=== PATIENT | female | born 1945 | race Caucasian/White ===

== ENCOUNTER 2018-01-04 08:14 | Day surgery (SDC) | payer MEDICARE, MEDICAID, SELFPAY ==
--- NOTE | 2018-01-03 11:20 | POEE_ITS ---
History of Present Illness Chief Complaint: Progressive decreased vision, right eye Narrative: The patient is a 71-year-old lady who presented with complaints of progressive decreased vision at both distance and near in her right eye. She notes significantly cloudy vision with a gradual onset. She does a lot of near work and has significant difficulty with that. On examination she was noted to have moderate nuclear and cortical cataract of the right eye with central cortical spoking with obscuration of the central visual axis. The option of cataract surgery was offered to the patient and she wished to proceed. NOTE: The Chief Complaint, HPI, Past Medical History, Past Surgical History, Family History, Social History, Medications, and complete Ophthalmic Exam with detailed Assessment and Plan have already been documented in the patient's outpatient ophthalmic record and/or in the Primary Care Provider's pre-op history and physical, and are not covered again in detail here. PFSH Family History Mother Cerebrovascular accident Father Heart disease Sister Personal history of malignant neoplasm Grandfather Personal history of malignant neoplasm Grandfather No problems noted. Grandmother Personal history of malignant neoplasm Grandmother No problems noted. Meds Allergies Allergy/AdvReac Type Severity Reaction Status Date / Time No Known Allergies Allergy Unverified 12/07/17 14:41 Exam OCULAR EXAM:: Visual acuity at distance: 20/20 right eye, 20/30 left eye. Pupils: Pupils equal, round, and reactive without afferent pupillary defect IOP: 17 OD, 14 OS Extraocular Motility: Normal Pertinent Slit Lamp Findings: Significant for pupils dilating to 5.5 mm OU. 1+ nuclear with 2+ cortical cataract is present OU. In the right eye there is central cortical spoking crossing the visual axis. Dilated Funduscopic Examination: Disc cupping is 0.3 OU with good color. The optic nerves have good perfusion and normal color. The retinal vasculature is normal without significant tortuosity or abnormality. The maculas are normal in appearance with normal contour and foveal reflex appropriate for age. The peripheral retina and vitreous are normal. BRIGHTNESS ACUITY TESTING (BAT):: Off right eye 20/20 Low: 20/25 Medium: 20/40 High: 20/50 Assessment and Plan (1) Nuclear sclerotic cataract of right eye: Current visit: No Status: Acute Assessment: Visually significant cataract, right eye with significant glare disability Plan: Cataract extraction with intraocular lens implantation, right eye (2) Cortical cataract of right eye: Current visit: No Status: Acute Assessment: Visually significant cataract, right eye, with significant glare disability Plan: Cataract extraction with intraocular lens implantation, right eye Note: NOTE:: The details of the planned surgery, including the risks, indications, limitations,expectations,outcome and possible complications were explained to the patient. The patient understands the complications including, but not limited to: infection, hemorrhage, posterior dislocation of the lens or nuclear fragments which may require the intervention of a vitreoretinal surgeon, possible loss of the eye, or from anesthetic complications. The patient has been made aware of the option of not having surgery, that vision following surgery may not be equal to that prior to surgery, and that the planned surgery may not achieve the intended results. Following this discussion, which the patient appeared to understand, the patient wishes to proceed with cataract surgery with lens implantation of the affected eye to improve and maximize vision.
[2018-01-04 08:32] VITALS: BP 141/93; PULSE 97; RESP 16; TEMP 36.6; O2SAT 96
[2018-01-04] MEDS: Lidocaine 2% Jelly 6 ML SYR (10:05)
[2018-01-04] MEDS: Balanced Salt Soln.-PLUS 500 ML BAG (10:10)
[2018-01-04] MEDS: Lidocaine 1% Pres-Free 5 ML VIAL (10:10)
[2018-01-04] MEDS: Povidone-Iodine Ophth 30 ML BTL (10:17)
--- NOTE | 2018-01-04 10:37 | W.PM.DSUDISC ---
Discharge Plan Discharge Details Reason For Visit: CATARACT OD Attending Provider: Johnie Antonio Primary Care Provider: Audrey Rivera Discharge Instructions Stand Alone Forms: Post-op Topical Jarred, Randal Corcoran (DSU) DS: Diagnosis Discharge Diagnosis (1) Nuclear sclerotic cataract of right eye: Status: Resolved (2) Cortical cataract of right eye: Status: Resolved
--- NOTE | 2018-01-04 10:40 | ROE_ITS ---
Date of service: 01/04/18 Time of Service: 10:38 Operative Note Date of procedure: 01/04/18 Pre-op diagnosis: Cataract, right eye Post-op diagnosis: same Procedure: Cataract extraction using phacoemulsification with intraocular lens implant, right eye Surgeon: Johnie Antonio Anesthesia: MAC (with local sub-tenon's anesthetic injection) Pathology: none sent Complications: None Patient was transported to: same day Patient's condition: stable Indications: Progressive decreased vision due to cataract, right eye Procedure Description: CATARACT SURGERY OPERATIVE REPORT PREOPERATIVE DIAGNOSIS: Nuclear/cortical cataract, right eye POSTOPERATIVE DIAGNOSIS: Same OPERATION: Cataract extraction using phacoemulsification with posterior chamber intraocular lens implant, right eye. IOL: IOL [employer] Broker/Model: [employer] D[employer] / SONNY Tecnis [id number] IOL Power: +19.50 diopters IOL Serial Number: [id number] Optic Diameter: 6.0mm Haptic/Overall Diameter: 13.00mm PHACO INFO: [email or web address] Vision System with OZil and Active Fluidics Cumulative Dispersed Energy (CDE): 3.84 seconds SURGEON: Johnie Antonio MD, JAIDA ANESTHESIA: Monitored Anesthesia Care (MAC), with local sub-tenon's anesthetic infiltration COMPLICATIONS: None SPECIMENS: None INDICATIONS FOR PROCEDURE: The patient is a 72-year-old lady with history of progressive decreased vision in both eyes at both distance and near. She was noted to have significant bilateral nuclear and cortical cataracts. The option of cataract surgery was offered to the patient and she wished to proceed. PROCEDURE: The correct surgical eye was identified and marked as the right eye and the pupil was dilated in the preoperative area using mydriatics, cycloplegics, and NSAIDS (except in aspirin allergic patients). The dilated pupil size was 7.0mm. Oral sedation was administered in the form of an Imprimis MKO Melt (midazolam 3mg/ketamine 25mg/ondansetron 2mg). The patient was brought to the operating room where cardiopulmonary monitoring was instituted and surgical time-out was performed, confirming the correct operative eye and IOL power. Topical anesthesia was administered and ophthalmic povidone-iodine 5% was instilled into the conjunctival fornices. Lidocaine gel was applied to the cornea and the michelle-ocular area was prepped with Betadine 10% solution and draped in the usual sterile fashion for intraocular surgery. Steri-strips were used to cover the lashes and lid margins and an adhesive eye drape was placed. Care was taken to isolate the lashes and lid margins under the Steri-strips and adhesive eye drape. A lid speculum was placed between the lids of the operative eye and the Carolina-Jose operating microscope was maneuvered into position. Zander scissors were then used to make a conjunctival buttonhole approximately 6mm posterior to the limbus in the inferonasal quadrant. Blunt dissection was carried out to expose bare sclera, and a blunt-tipped sub-tenon? s anesthesia cannula was introduced and passed posteriorly along the globe where non-preserved plain lidocaine was injected into posterior sub-Tenon?s space. A sideport knife was used to make a paracentesis port at the 7:00 postion and the anterior chamber was filled with Healon GV. A 2.4mm keratome knife was used to create a half-thickness groove at the limbus and then to construct a three-plane near-clear corneal tunnel extending 2.0mm into clear cornea at the 10:00 position. A flap was raised on the anterior capsule and capsulorhexis forceps were used to complete a continuous curvilinear capsulorhexis of 5.0mm. Balanced salt solution was then used to perform cortical cleaving hydrodissection and nuclear hydrodelineation until the lens could be freely rotated within the capsular bag. The lens nucleus was then disassembled and removed within the capsular bag and iris plane using phacoemulsification. Residual cortical material was removed using the 45-degree angled silicone I/A tip with 0.3mm port. The posterior capsule was carefully polished to remove as much residual lens epithelial cells as safely possible. The capsular bag was then inflated and the anterior chamber deepened with viscoelastic. The lens implant described above was inserted into the capsular bag using the SONNY [place] Injector. A Kuglen hook was used to dial the IOL into position. Residual viscoelastic was then removed first from posterior to the IOL, then from the anterior chamber using the I/A handpiece. The lens implant was noted to center nicely within the capsular bag. The incisions were stromally hydrated , and the anterior chamber was reformed using BSS. Then 0.4cc of moxifloxacin 1.5mg/ml were injected into the capsular bag and anterior chamber. The incisions were checked with a Weck spear and found to be secure. Several drops of ophthalmic povidone-iodine 5% were then applied to the eye followed by two drops of Imprimis combination moxifloxacin/dexamethasone solution. The drapes were removed and a clear plastic protective eye shield was placed over the eye. The patient was then returned to [facility] in stable condition.
[2018-01-04 10:56] VITALS: BP 121/67; PULSE 83; RESP 16; TEMP 36.3; O2SAT 93
== END 2018-01-04 11:12 | disposition home or self-care (01) ==
PROVIDERS: PCP Family Medicine; Visit Provider Ophthalmology
PROC: (CPT 66984; principal; 2018-01-04 10:30)
DX: H25.11 Age-related nuclear cataract, right eye (principal); H25.011 Cortical age-related cataract, right eye
CPT/HCPCS: 66984; V2632

== ENCOUNTER 2021-02-18 01:15 | Outpatient (CLI) | payer MEDICARE, MEDICAID, SELFPAY ==
--- NOTE | 2021-02-18 06:45 | DI.RAD_ITS ---
Exam(s) XR KNEE LT 3V AP,LAT,SARAY EXAM: XR KNEE LT 3V AP,LAT,SARAY CLINICAL HISTORY: b/l knee pain,m25.569. TECHNIQUE: 2D digital imaging was performed. COMPARISON: No exams were available for comparison FINDINGS: Three views of the left knee reveal no evidence of fracture. There is a moderate size joint effusion . There is cisk-ny-rzjl narrowing of the medial compartment. No significant narrowing of the latera l compartment. Significant narrowing of the patellofemoral compartment is noted none although there is no merchant's view on this study. Calcification posteriorly is probably a fabella, seen on the la teral view. IMPRESSION: Advanced degenerative changes in the medial compartment. Joint effusion DATA REPOSITORY: RADIATION DOSE DELIVERED:
--- NOTE | 2021-02-18 06:45 | DI.RAD_ITS ---
Exam(s) XR KNEE RT 3V AP,LAT,SARAY EXAM: XR KNEE RT 3V AP,LAT,SARAY CLINICAL HISTORY: b/l knee pain,m25.569. TECHNIQUE: 2D digital imaging was performed. COMPARISON: No exams were available for comparison FINDINGS: There is no evidence of fracture. Advanced narrowing of the medial compartment is noted with bone-on -bone apposition, similar to the opposite side. Also prominent marginal osteophytes off the medial c ompartment. There is preservation of height in the lateral compartment. Moderate degenerative changes are noted in the patellofemoral compartment, seen on the lateral view. There is a calcification posteriorly which is most probably the fabella, as seen on the lateral view . IMPRESSION: Degenerative changes, most prominent in the medial compartment, this being similar to the opposite si de DATA REPOSITORY: RADIATION DOSE DELIVERED:
== END 2021-02-18 01:35 ==
PROVIDERS: PCP Family Medicine; Visit Provider Family Medicine
DX: M25.561 Pain in right knee (principal); M25.562 Pain in left knee; M17.0 Bilateral primary osteoarthritis of knee
CPT/HCPCS: 73562

== ENCOUNTER → 2021-08-19 13:18 | Outpatient (BNVA) | payer MEDICARE, MEDICAID, SELFPAY | PROVIDERS: PCP Family Medicine; Referring Provider Family Medicine; Visit Provider Physician Assistant | DX: M17.12 Unilateral primary osteoarthritis, left knee (principal); M17.11 Unilateral primary osteoarthritis, right knee | CPT/HCPCS: 99203 ==

== ENCOUNTER → 2021-08-28 13:46 | Outpatient (BNVA) | payer MEDICARE, MEDICAID, SELFPAY | PROVIDERS: PCP Family Medicine; Referring Provider Family Medicine; Visit Provider Physician Assistant Surgical | DX: M17.11 Unilateral primary osteoarthritis, right knee (principal); M17.12 Unilateral primary osteoarthritis, left knee | CPT/HCPCS: 20610; J7325 ==

== ENCOUNTER → 2022-03-03 08:54 | Outpatient (BNVA) | payer MEDICARE, MEDICAID, SELFPAY | PROVIDERS: PCP Family Medicine; Referring Provider Family Medicine; Visit Provider Physician Assistant | DX: M17.11 Unilateral primary osteoarthritis, right knee (principal); M17.12 Unilateral primary osteoarthritis, left knee | CPT/HCPCS: 20610; J7325 ==

== ENCOUNTER → 2022-08-08 10:17 | Outpatient (BNVA) | payer MEDICARE, MEDICAID, SELFPAY | PROVIDERS: PCP Family Medicine; Referring Provider Family Medicine; Visit Provider Physician Assistant | DX: M17.11 Unilateral primary osteoarthritis, right knee (principal); M17.12 Unilateral primary osteoarthritis, left knee | CPT/HCPCS: 20610; J1040 ==

== ENCOUNTER → 2022-11-06 08:22 | Outpatient (BNVA) | payer MEDICARE, MEDICAID, SELFPAY | PROVIDERS: PCP Family Medicine; Referring Provider Family Medicine | DX: M17.11 Unilateral primary osteoarthritis, right knee (principal); M17.12 Unilateral primary osteoarthritis, left knee | CPT/HCPCS: 20610; J7325 ==

== ENCOUNTER → 2023-09-10 04:18 | Outpatient (CLI) | payer MEDICARE, MEDICAID, SELFPAY ==
--- NOTE | 2023-09-10 08:30 | DI.US_ITS ---
APPROVED REPORT EXAM: Comprehensive 2D, Doppler, and color-flow Echocardiogram Patient Location: Out-Patient Substitute Teacher: Rafia Kearney RDCS (AE) Indications: S/P AVR, BOVINE Other Information Study Quality: Adequate Conclusion Mild concentric left ventricular hypertrophy. Ejection fraction is 55 to 60%. Wall motion is normal Normal right ventricular size and function Both atria are mildly dilated There is a bioprosthetic aortic valve, leaflets appear thickened. Peak gradient is 41, mean 24 mmHg. Calculated aortic valve area is 1.2 cm??. There is no aortic regurgitation Mitral annular calcification with trace to mild mitral regurgitation Mild tricuspid regurgitation. Estimated right ventricular systolic pressure is 27 mmHg Wall motion Left Ventricle The left ventricle is normal size. The left ventricular systolic function is normal. The left ventric ular ejection fraction is within the normal range. Mild concentric left ventricular hypertrophy. Ther e is normal LV segmental wall motion. There is no ventricular septal defect visualized. LVEF is 58%. Right Ventricle The right ventricle is normal size. The right ventricular systolic function is normal. Atria Left atrium is mildly dilated. Right atrium is mildly dilated. The interatrial septum is intact with no evidence for an atrial septal defect. Aortic Valve Aortic valve is calcified. Highest mean aortic valve gradient is 23.76mmHg. Highest peak aortic valve gradient is 40.51mmHg. Calculated AIRAM by the continuity equation is 1.2_cm2. No aortic regurgitation is present. Bioprosthetic aortic valve is present. Mitral Valve Mild mitral annular calcification. No evidence of mitral valve stenosis. Trace to mild mitral regurgi tation. Tricuspid Valve The tricuspid valve is normal in structure. There is no tricuspid valve stenosis. Mild tricuspid regu rgitation. The RVSP is 27.39_ mmHg. Pulmonic Valve Pulmonic valve is not well visualized. Great Vessels The aortic root is normal in size. The ascending aorta is borderline dilated. Aortic arch is not well visualized. IVC is normal in size and collapses >50% with inspiration. Pericardium There is no pericardial effusion. 2D Dimensions IVSD d PLAX 1.10 cm F: 0.6-1.0 Ao Root d 2.93 cm F: 2.7 - 3.3 LVPW d PLAX 1.10 cm F: 0.6 - 1.0 Ao Asc Diam d 3.36 cm F: 2.3 - 3.1 LVID d PLAX 4.00 cm F: 3.8 - 5.2 LVDs 2.76 cm F: 2.2 - 3.5 LV EF Teichholz 59.2 % FS 30.96 % LV EDV (Teich) 69.9 mL LV ESV (Teich) 28.5 mL M-Mode TAPSE 1.68 cm (M/F) >1.7 Auto EF LV EDV A4C 112.0 mL LV EDV A2C 116.3 mL LV EDV BP 117.4 mL LV ESV A4C 47.3 mL LV ESV A2C 50.5 mL LV ESV BP 49.6 mL LVEF(%) A4C 57.8 % LVEF(%) A2C 56.6 % LVEF(%) BP 57.7 % LV SV A4C 64.8 ml LV SV A2C 65.8 ml LV SV BP 67.8 ml LV CO A4C 4.5 L/min LV CO A2C 4.1 L/min LV CO BP 4.3 L/min HR A4C 70.18 BPM HR A2C 62.40 BPM LV EDV Index (BP) LA Volume LA Length A4C 4.9 cm LA Length A2C 5.4 cm LA Area A4C s 20.61 cm2 LA Area A2C s 21.00 cm2 LA Vol A4C A-L 73.38 mL LA Vol A2C A-L 69.90 mL LA Vol Biplane A-L 74.8 mL LA Vol/BSA A4C A-L LA Vol/BSA A2C A-L LA Vol/BSA BP A-L 37.2 mL/m2 LA Vol A4C MOD 65.9 mL LA Vol A2C MOD 65.1 mL LA Vol BP MOD 68.4 mL RA Volume RA Area A4C 13.2 cm2 RA ESV A4C (A-L) 32.9mL RA Vol/BSA A4C A-L RA Length A4C 4.5 cm RA ESV A4C (MOD) 31.6mL LV Diastology MV E' medial 0.077 (>0.07 m/s) MV E Vmax 1.10 (0.4-1.3 m/s) MV E/E' MED 14.25 (<14) MV A Vmax 1.25 (0.4-1.3 m/s) MV E' lateral 0.082 (>0.1 m/s) E/A Ratio 0.9 MV E/E' LAT 13.32 (<14) MV E' Average 0.080 m/s MV E/E'(average) 13.77 Aortic Valve AoV Vmax 3.18 m/s LVOT Vmax 1.14 m/s AoV Peak Grad 40.5 mmHg LVOT Peak Grad 5.2 mmHg AoV Area (Vmax) 1.17 cm2 LVOT VTI 0.257 m AoV VTI 0.678 m LVOT Mean Grad 3.2 mmHg AoV Mean Wali. 2.38 m/s LVOT SV 83.71 mL AoV Mean Grad 23.8 mmHg LVOT Diam s 2.00 cm AoV Area (VTI) 1.23 cm2 Velocity Ratio 0.36 Mitral Valve MV DT 297 (160-240 msec) MV Vmax TIPS 1.21 m/s MV Mean Grad 3.0 (<2mmHg) MV VTI 0.375 m Tricuspid Valve RA Pressure 3.00 mmHg TR Vmax 2.47 m/s TV S' 0.12 m/s TR Peak Grad 24.3 mmHg RVSP (TR) 27.4 mmHg
== END ==
PROVIDERS: PCP Family Medicine; Visit Provider Family Medicine
DX: Z95.2 Presence of prosthetic heart valve (principal)
CPT/HCPCS: 93306

== ENCOUNTER 2025-03-10 07:14 | Day surgery (SDC) | payer MEDICARE, MEDICAID, SELFPAY ==
[2025-03-10 07:16] VITALS: BP 144/75; PULSE 101; RESP 18; TEMP 36.3; O2SAT 98
[2025-03-10] MEDS: Tropicam./Phenyleph. (1/2.5%) 5 ML BTL OS ×3 (07:25→07:35)
--- NOTE | 2025-03-10 08:11 | W.ANESPRE ---
General Info Date of Service Date Performed: 03/10/25 Height: 5 ft 3.5 in Weight: 99.1 kg Body Mass Index (BMI): 38.0 Surgical Procedure: Operation Date: 03/10/25 09:40 Proposed Procedure Side Surgeon p Cataract Extraction with IOL Implant Left Johnie Antonio MD Meds Allergies and Home Medications Allergies Allergy/AdvReac Type Severity Reaction Status Date / Time No Known Allergies Allergy Verified 03/07/25 14:16 Home Medication Medication Instructions Recorded Unknown [No Known Home Meds] 01/24/20 Current Visit Medications: Current Medications Generic Name Dose Route Start Last Admin Trade Name Freq PRN Reason Stop Dose Admin Acetaminophen 1,000 mg 03/10/25 06:00 Acetaminophen 500 Mg Tab PO 04/09/25 05:59 Q4H PRN PRN Balanced Salt Solution 500 ml 03/10/25 06:00 Balanced Salt Soln.-Plus 500 Ml Bag OP 04/09/25 05:59 DIRECTED BETSY Miscellaneous Medication 0 ml 03/10/25 06:00 Prednisolone 1%, Moxifloxacin 0.5%, Bromfenac 0.09% 5.6ml Btl OS 04/09/25 05:59 DIRECTED BETSY Miscellaneous Medication 0 ml 03/10/25 06:00 03/10/25 07:35 Tropicam./Phenyleph. (1/2.5%) 5 Ml Btl OS 04/09/25 05:59 1 drp DIRECTED BETSY Administration Tetracaine HCl 0 ml 03/10/25 06:00 Tetracaine 0.5% 4 Ml Btl OS 04/09/25 05:59 DIRECTED BETSY PFSH Active Problems Active Problems: Problem Status Onset Code Cortical age-related cataract, left eye Acute H25.012 Age-related nuclear cataract, left eye Acute H25.12 Degenerative joint disease of right knee Acute M17.11 Left knee DJD Acute M17.12 Tick bite Acute W57.XXXA Supraventricular tachycardia Acute 08/15/13 I47.1 Sensorineural hearing loss, bilateral Acute 02/04/16 H90.3 Aortic valve replaced Acute Z95.2 Cortical cataract of right eye Resolved H26.9 Nuclear sclerotic cataract of right eye Resolved H25.11 Tobacco Smoking/Tobacco Use Status: Former Tobacco Use Passive smoking exposure: Yes Second hand exposure: No Alcohol Alcohol Intake: current Alcohol intake frequency: holidays/special occasions only Alcohol type: wine Substance Use Substance use: Current Sobriety Substance use type: marijuana Vital Signs and Lab Results Vital Signs Most Recent Vital Signs in EMR: Most Recent Vital Signs Temp Pulse Resp BP Pulse Ox 36.3 C L 101 H 18 144/75 H 98 03/10/25 07:16 03/10/25 07:16 03/10/25 07:16 03/10/25 07:16 03/10/25 07:16 Anesthesia Assessment and Plan Anesthesia History Personal History: No History of Anesthesia Complications Family History: No Family History of Anesthesia Complications Exercise Tolerance Exercise Tolerance: Metabolic Equivalents>4 Pertinent Negatives Pertinent Negatives: No Symptoms of GERD Cardiac & Pulmonary Exam Cardiac Exam: Normal S1/S2 Heart Sounds Pulmonary Exam: Clear Bilateral Breath Sounds Implantable Cardiac Device Does patient have a Pacemaker or an ICD?: No Airway Exam Known Difficult Airway: No Mallampati Class: 2 Mouth Opening: Normal (> 3cm) Thyromental Distance: Greater than 3 cm Neck Range of Motion: Full ROM Neck Circumference: Normal Teeth Condition: Normal Dentition ASA Classification ASA Score: ASA 3 Emergency Case?: No NPO Status NPO Status: NPO Clears >2 hours, Solids >8 hours Anesthesia Plan Resuscitation Status: Full Code Anesthesia Technique: MAC Anesthesia Airway Planned: Natural Airway Monitors Used: Standard Monitors
[2025-03-10 08:13] VITALS: BMI 38.0
[2025-03-10] MEDS: Lidocaine 1% Pres-Free 5 ML VIAL (09:17)
[2025-03-10] MEDS: Moxifloxacin-PF 1 MG/ML VIAL (09:18)
[2025-03-10] MEDS: Phenylephrine/Lidocaine (15/10) MG/ML 1 ML VIAL (09:18)
[2025-03-10] MEDS: Povidone-Iodine Ophth 30 ML BTL (09:19)
[2025-03-10] MEDS: Duovisc Viscoelastic System EACH 1 EACH (09:19)
[2025-03-10] MEDS: Tetracaine 0.5% 4 ML BTL OS (09:20)
[2025-03-10] MEDS: Prednisolone 1%, Moxifloxacin 0.5%, Bromfenac 0.09% 5.6ML BTL OS (09:20)
[2025-03-10] MEDS: Balanced Salt Soln.-PLUS 500 ML BAG OP (09:20)
[2025-03-10] MEDS: Trypan Blue 0.06% 0.5 ML SYR (09:22)
[2025-03-10 09:42] VITALS: BP 115/66; PULSE 84; RESP 12; TEMP 36.1; O2SAT 93
--- NOTE | 2025-03-10 09:45 | W.PM.DSUDISC ---
Date of service: 03/10/25 Discharge Plan Disposition Patient Disposition: Home Discharge Details Attending Provider: Johnie Antonio Primary Care Provider: Audrey Rivera Home Meds and New Rx's Prescriptions: No Action No Known Home Meds Discharge Instructions Stand Alone Forms: DSU Post-Op Cataract, Randal Corcoran (DSU) Discharge Orders Discharge Orders: Discharge Order (Routine); Ordered 03/10/25 Ordered By: Johnie Antonio DS: Diagnosis Discharge Diagnosis (1) Cortical age-related cataract, left eye: Status: Resolved (2) Age-related nuclear cataract, left eye: Status: Resolved
--- NOTE | 2025-03-10 09:46 | W.PM.OP ---
Operative Note Operative Note PRE-OP DIAGNOSIS: Nuclear/cortical cataract, left eye POST-OP DIAGNOSIS: same PROCEDURE: Cataract extraction using phacoemulsification with intraocular lens implant, left eye SURGEON: Johnie Antonio ANESTHESIA TYPE: Local By Surgeon and MAC Refer to Anesthesia Record PATHOLOGY: none sent COMPLICATIONS: None Patient was transported to: same day Patient's condition: stable Implants: Jose Clareon [id number] Indications: Progressive decreased vision due to cataract, left eye Procedure Description: CATARACT SURGERY OPERATIVE REPORT PREOPERATIVE DIAGNOSIS: Nuclear/cortical cataract, left eye POSTOPERATIVE DIAGNOSIS: Same OPERATION: Cataract extraction using phacoemulsification with posterior chamber intraocular lens implant, left eye. IOL: IOL Mutton Puncher/Model: Jose Clareon [id number] IOL Power: + 19.5 diopters IOL Serial Number: [id number] Optic Diameter: 6.0mm Haptic/Overall Diameter: 13.0mm PHACO INFO: Jose [employer]ion Vision System with OZil and Active Fluidics Cumulative Dispersed Energy (CDE): 4.39 seconds SURGEON: Johnie Antonio MD, JAIDA ANESTHESIA: Monitored Anesthesia Care (MAC), with local sub-tenon's anesthetic infiltration COMPLICATIONS: None SPECIMENS: None INDICATIONS FOR PROCEDURE: The patient is a 79-year-old lady with history of diminished visual acuity in her left eye secondary to the development of nuclear/cortical cataract. She is significantly symptomatic that she desires cataract surgery and attempt to improve and maximize her vision. She has previously undergone cataract surgery in the right eye 7 to 8 years ago and is doing well in that eye. She now presents for cataract surgery in the left eye. See office notes for detailed information. PROCEDURE: The correct surgical eye was identified and marked as the left eye and the pupil was dilated in the preoperative area using mydriatics and cycloplegics. The dilated pupil size was 7.0 mm. Oral sedation was administered in the form of an Imprimis MKO Melt (midazolam 3mg/ketamine 25mg/ondansetron 2mg). The patient was brought to the operating room where cardiopulmonary monitoring was instituted and surgical time-out was performed, confirming the correct operative eye and IOL power. Topical anesthesia was administered and ophthalmic povidone-iodine 5% was instilled into the conjunctival fornices. The michelle-ocular area was prepped with Betadine 10% solution and draped in the usual sterile fashion for intraocular surgery, including an aperture drape. A Tegaderm transparent film dressing was cut in half and used to cover the lashes and lid margins. Care was taken to sequester the lashes and lid margins under the Tegaderm dressing. A lid speculum was placed between the lids of the operative eye and the Jose Lux[employer] Revalia operating microscope was maneuvered into position. Zander scissors were then used to make a conjunctival buttonhole approximately 6mm posterior to the limbus in the inferonasal quadrant. Blunt dissection was carried out to expose bare sclera, and a blunt-tipped sub-tenon’s anesthesia cannula was introduced and passed posteriorly along the globe where non-preserved plain lidocaine was injected into posterior sub-Tenon’s space. A sideport knife was used to make a paracentesis port. VisionBlue was injected into the anterior chamber and allowed to sit for 30 seconds. Intraocular phenylephrine/lidocaine was injected into the anterior chamber. The anterior chamber was then filled with viscoelastic. A keratome knife was used construct a two-plane clear corneal tunnel extending 2.0mm into clear cornea. A flap was raised on the anterior capsule and capsulorhexis forceps were used to complete a continuous curvilinear capsulorhexis of 5.0 mm. The capsule was noted to be quite thin. Some mild zonular laxity was noted diffusely. Balanced salt solution was then used to perform cortical cleaving hydrodissection and nuclear hydrodelineation until the lens could be freely rotated within the capsular bag. The lens nucleus was then disassembled and removed within the capsular bag and iris plane using phacoemulsification. Residual cortical material was removed using the irrigation/aspiration handpiece. The posterior capsule was carefully polished to remove as much residual lens epithelial cells as safely possible. The capsular bag was then inflated and the anterior chamber deepened with viscoelastic. The lens implant described above was inserted into the capsular bag using the Jose Autonome Injector. A Kuglen hook was used to dial the IOL into position. Residual viscoelastic was then removed first from posterior to the IOL, then from the anterior chamber using the I/A handpiece. The lens implant was noted to center nicely within the capsular bag. The incisions were stromally hydrated, and the anterior chamber was reformed using BSS. Then 0.5cc of moxifloxacin 1.0mg/ml were injected into the capsular bag and anterior chamber. The incisions were checked with a Weck spear and found to be secure. Several drops of ophthalmic povidone-iodine 5% were then applied to the eye followed by two drops of combination steroid/NSAID/antibiotic solution. The drapes were removed and a clear plastic protective eye shield was placed over the eye. The patient was then returned to Same Day Surgery in stable condition. Date of Procedure: 03/10/25
--- NOTE | 2025-03-10 10:01 | W.ANESPOSTOP ---
Postoperative Evaluation Date, Time and Location Date Performed: 03/10/25 Time Performed: 09:55 Patient Location: Day Surgery Unit Vital Signs Most Recent Imported Vital Signs: Most Recent Vital Signs Temp Pulse Resp BP Pulse Ox 36.1 C L 84 12 115/66 93 03/10/25 09:42 03/10/25 09:42 03/10/25 09:42 03/10/25 09:42 03/10/25 09:42 Pain Score Most Recent Pain Score: Most Recent Pain Score Pain Level 0 03/10/25 09:42 Assessment Mental Status: Awake (Alert & Oriented to Patient Baseline) Airway and Respiratory Function: Patent airway with normal (patient baseline) respiratory exam Cardiovascular Function: Hemodynamically Stable Hydration Status: Adequately Hydrated Nausea & Vomiting: No Nausea or Vomiting Pain: Pt. Denies Any Pain Peripheral Nerve Block: Patient did not receive a nerve block
[2025-03-10 10:03] VITALS: BP 123/63; PULSE 89; RESP 14; TEMP 37.1; O2SAT 93
== END 2025-03-10 10:08 | disposition home or self-care (01) ==
PROVIDERS: PCP Family Medicine; Visit Provider Ophthalmology
PROC: (CPT 66984; principal; 2025-03-10 09:30)
DX: H25.012 Cortical age-related cataract, left eye (principal); H25.12 Age-related nuclear cataract, left eye; Z98.41 Cataract extraction status, right eye
CPT/HCPCS: 66984; 00123; V2632; J2003